=== PATIENT | female | born 1955 | race Caucasian/White ===

== ENCOUNTER 2019-06-04 08:04 | Observation (INO) | payer BC ==
[~2019-06-04] VITALS: Ht 162.6 cm; Wt 110.7 kg
--- NOTE | ~2019-06-04 | D ---
[facility] [place] [address] DISCHARGE SUMMARY Name: SNOW OLIVARES Room #: 206-P ADM [facility] M.R.#: [id number] Admission: 06/04/19 Attend Phys: Domo Roblero Discharge: Date of : 53 Report #: [id number] THIS REPORT FOR: cc: Keila Melissa MD,Keila Roblero,Domo Hummel MD ~ THIS REPORT FOR: //name// CC: Domo Melissa DATE OF SERVICE: 06/05/2019 ADMITTING DIAGNOSIS: Chest pain with abnormal perfusion scan. DISCHARGE DIAGNOSES: 1. Coronary artery disease. 2. Diabetes mellitus. 3. Dyslipidemia. DISCHARGE MEDICATIONS: 1. Ticagrelor 90 mg p.o. b.i.d., aspirin 81 mg daily. 2. Home medications. FOLLOWUP: Dr. Roblero in 4 weeks. DISCHARGE DIET: [place] [employer] Association step 1 diet and the [place] Diabetic Association recommendations consistent with the [place] diet. DISCHARGE ACTIVITY: No heavy straining for 48 hours. PROCEDURES PERFORMED: 1. Left heart catheterization. 2. Percutaneous transluminal coronary angioplasty and stenting of the left anterior descending distal third with a Medtronic 2.25 x 12 mm YAJAIRA stent taken to 20 atmospheres. 3. Supervision and conscious sedation. BRIEF CLINICAL HISTORY: See history and physical in the chart. HOSPITAL COURSE: The patient was admitted to the hospital and underwent cardiac catheterization, demonstrated significant single vessel disease with moderate 2-vessel disease involving the circumflex and the right coronary artery. The LAD was subsequently stented after family agreed to proceed percutaneously and deployed the stent. Post-procedure, the patient had a short run of atrial fibrillation, which she never had previously. She stated that was associated [facility] [address] [place] [address] DISCHARGE SUMMARY Name: SNOW OLIVARES Room #: 206-P [facility] Fabiola Moise#: [id number] Admission: 06/04/19 Attend Phys: Domo Roblero Discharge: Date of : 53 Report #: [id number] with shortness of breath. She also stated she felt the palpitations and once the palpitations resolved, she felt back to normal. She had never had these sensations documented, although she had the symptoms previously never able to be identified. She was allowed to ambulate without any recurrent symptomatology without limitations and tolerating the medications well. She is being discharged in stable and improved condition to follow up with the previously stated discharge instructions and medications. By: 1336 1422 Domo Roblero MD /nt
[2019-06-04] MEDS ORDERED: FOSAMAX 70 MG T70 MG PO (08:39)
[2019-06-04] MEDS ORDERED: ALLOPURINOL 10100 M1 PO (08:40)
[2019-06-04] MEDS ORDERED: AMLOD-VALSA-HC1 EAC1 PO (08:41)
[2019-06-04] MEDS ORDERED: ASA81BEC PO (08:41)
[2019-06-04] MEDS ORDERED: CO-ENZYME Q-1010 MG PO (08:43)
[2019-06-04] MEDS ORDERED: NEURONTIN 300M300 M2 PO (08:43)
[2019-06-04] MEDS ORDERED: VITAMIN D350 MCG PO (08:43)
[2019-06-04] MEDS ORDERED: TRESIBA100 UNIT/1 SUBQ (08:44)
[2019-06-04] MEDS ORDERED: HUMALOG100 UNIT/1 SUBQ (08:44)
[2019-06-04] MEDS ORDERED: TOPROL XL100 MG PO (08:45)
[2019-06-04] MEDS ORDERED: NITROSTAT0.4 M1 SUBLING (08:45)
[2019-06-04] MEDS ORDERED: IMDUR 30 MG TAB30 M1 PO (08:45)
[2019-06-04] MEDS ORDERED: CRESTOR20 MG PO (08:46)
[2019-06-04 09:25] VITALS: BP 138/70
[2019-06-04 09:26] LABS: HEMATOCRIT 43.3 % (37.0-47.0); MCH 31.7 pg (26.0-34.0); MCHC 34.7 g/dL (28.0-37.0); MCV 91.4 fL (80.0-100.0); RBC 4.74 mil/uL (4.20-5.00); RDW 13.2 % (10.5-14.5); WBC 8.6 thou/uL (4.0-11.0)
[2019-06-04 09:37] LABS: CALCIUM 9.3 mg/dL (8.5-10.1); POTASSIUM 3.9 mmol/L (3.5-5.1)
[2019-06-04] MEDS ORDERED: JARDIANCE10 MG PO (10:03)
[2019-06-04 15:30] VITALS: BP 138/70
[2019-06-04 16:25] VITALS: BP 145/74
--- NOTE | 2019-06-04 18:39 | NUR ---
PT CARE ASSUMED AT 1530. PT ASSESSMENT CHARTED. CARDIAC CATH PT; RT GROIN STENT; DISTAL LAD X 1; MYNX CLOSURE. BED REST COMPLETE. PT UP TO TOILET. PT DENIES PAIN.
[2019-06-04 20:44] VITALS: BP 143/79
[2019-06-04 23:39] VITALS: BP 153/87
[2019-06-05 04:14] VITALS: BP 141/72
--- NOTE | 2019-06-05 06:10 | NUR ---
PATIENTS CARE WAS ASSUMED AT SHIFT CHANGE. PATIENT WAS ASSESSED AND MEDS WERE PASSED. PATIENT IS HERE ON 23 HOURS OPS. AFTER A CARDIAC CATH. MED REC WAS ADDRESSED. WAS TOLD BY NONI SHE WAS A DIABETIC. WENT OVER MEDS WITH PATIENTS DAUGHTER DUE TO PATIENTS NEPALESE IS NOT GOOD. ALLERGIES WERE ALSO REVIEWED. DOCTOR WAS CALLED TO OBTAIN AN ORDERS TO ORDER AND GIVE MEDICATIONS. SHE IS NOW ACCU CHECKS AC AND HS. INSULIN IS ORDERED IN A LOW SLIDING SCALE. IVF RAN AT 50CC PER HOUR [id number], PER DRS. ORDER THEN STOPPED. PATIENTS NIGHT WAS UNEVENTFULL. SEVERAL TRIPS TO THE BATHROOM. PATIENT DID SLEEP APPROX. SEVEN HOURS. PATIENT MOST LIKELY WILL BE DISCHARGED TODAY. HOURLY ROUNDS WERE MADE. THE BED IS IN A LOW AND LOCKED POSITION.
[2019-06-05] MEDS ORDERED: BRILINTA90 MG PO (07:46)
[2019-06-05 07:55] VITALS: BP 149/88
--- NOTE | 2019-06-05 07:57 | EKG ---
[facility] [place] [address] ELECTROCARDIOGRAM REPORT Name: SNOW OLIVARES Room #: 206-P [facility] M.R.#: [id number] Admission: 06/04/19 Attend Phys: Domo Roblero Discharge: Date of : 53 Report #: [id number] THIS REPORT FOR: cc: Keila Melissa MD, Julie MD Lundgren,Michael [place] MD [facility] ~ THIS REPORT FOR: //name// [facility] Test Date: 2019-06-04 Test Time: 09:20:48 Pat Name: SNOW OLIVARES Department: Room: [facility] Gender: F 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: MACKENZIE : 1955 Requested By: Domo Roblero Order Number: [id number] MD: Michael Santiago Measurements Intervals [place] Rate: 74 P: -17 [place]: 192 QRS: 15 QRSD: 101 T: 102 QT: 394 QTc: 438 Interpretive Statements Sinus rhythm Nonspecific T abnormalities, lateral leads No previous ECG available for comparison Electronically Signed On 06-05-2019 7:55:35 CDT by Michael Santiago [email or web address] <ELECTRONICALLY SIGNED> By: Michael Santiago MD, [facility] 06/05/19 0755 9 9 Michael Santiago MD, [facility] /EPI
[2019-06-05 08:00] VITALS: BP 149/88
[2019-06-05 12:00] VITALS: BP 146/71
[2019-06-05 12:05] VITALS: BP 146/71
--- NOTE | 2019-06-05 13:09 | CATHLAB ---
[facility] [place] [address] INVASIVE PROCEDURE REPORT Name: SNOW OLIVARES Room #: 206-P ADM Fabiola M.RRuperto#: [id number] Admission: 06/04/19 Attend Phys: Domo Roblero Discharge: Date of : 53 Report #: [id number] THIS REPORT FOR: cc: Keila Melissa MD, Julie MD Lammoglia, Francisco J. MD ~ APPROVED REPORT Study performed: 06/04/2019 13:44:40 Patient Details Patient Status: Out-Patient Room #: The patient is a 63 year-old female Event Personnel Domo Roblero Fire Engine Operator, Ashley Barnes RN RN, Daniela Baltazar Monitor, Syeda Lucas RTR ScrubAp Sherra RTAura Monitor Procedures Performed Art Access - R femoral artery* 48571 Initial Mod Sed Same Phys/QHP Gr5y 471503 39074 Mod Sed Same Phys/QHP Ea 060262 YAJAIRA Place w/wo Plasty Single LAD 404844 Hemostasis w/ Mynx, supervision of conscious sedation Indication Chest pain Procedure Narrative The Right Groin^ was infiltrated with 1% Lidocaine subcutaneous anesthesia. A PINNACLE 6FR Sheath #[id number] sheath was inserted into the RFA^. Coronary angiography was performed using coronary diagnostic catheters. The patient tolerated the procedure well and there were no complications associated with the procedure. There was no hematoma. Intraoperative Conscious Sedation Sedation start time: 1424 Case end Time: 1519 Versed 2 mg Fluoro Time: 11.09 minutes Dose: DAP 93493.00 cGycm2 1598 mGy Contrast Type and Amount: Omnipaque 150 ml [facility] [address] [place] [address] INVASIVE PROCEDURE REPORT Name: SNOW OLIVARES Room #: 206-P [facility] [place] ..#: [id number] Admission: 06/04/19 Attend Phys: Domo Han Discharge: Date of : 53 Report #: [id number] Diagnostic Cath LAD I's moderate caliber type II vessel which courses in the anterior interventricular sulcus. There is moderate less than 50% lesion proximally which is not flow-limiting. There is no irregularities noted throughout the mid and distal LAD until the distal third of the distal portion of the LAD which has a subtotal 90% lesion. There is thrombus present with IAN 1 flow noted. Post-stent deployment the vessel is widely patent as described in the report below Hemodynamics The aortic pressure is 140/77 mmHg with a mean of 104 mmHg. PCI Technique After discussion with family members it was felt prudent injury vascular physician was their wishes and the patient was brought back to the cardiac catheterization laboratory. Informed consent was obtained. She was sedated with 2 mg of Versed. The right groin was prepped and draped in usual sterile manner utilizing a modified Seldinger technique the right femoral artery was then cannulated. A 6 Iraqi sheath was inserted. Under fluoroscopic realization a Allotrope Partnerstronic JL4 catheter was engaged the left coronary ostium. A 0.014 wire was advanced to the distal LAD. 8 2 mm x 12 mm PTCA balloon was then advanced across the lesion and slowly inflated. Subsequent to this the balloon was exchanged for a 2.25 mm x 12 mm deep chest Medtronic stent that was positioned across the lesion and deployed. Several post deployment inflations were obtained with a maximum of 20 reva. The vessel is widely patent is no loss of side branch distal embolization or intraluminal thrombus noted. The initial thrombus that was present in the vessel was no longer present. Nicardipine 200 g were given into coronary prior to final imaging. Patient tolerated procedure well and no complications. This site was sealed with a minx closure device PCI Technique Lesion Anticoagulation was achieved with Angiomax. Percutaneous coronary intervention was performed on the distal left anterior descending artery segment. The lesion stenosis prior to intervention was 99% with IAN 1 flow. A LAUNCHER 6FR JL4 #[id number] Guide Catheter was used to engage the ostium. A Luge Wire .014 x 182CM #[id number] Interventional Guidewire was used to cross the lesion. BALLOON DILATION A Balloon catheter Sprinter OTW 2.0 x 12 #[id number] was inserted and inflated up to 4.00atm for 17seconds. Additional Inflation: 8.00atm [address] [address] INVASIVE PROCEDURE REPORT Name: SNOW OLIVARES Room #: 206-P [facility] [place] M.R.#: [id number] Admission: 06/04/19 Attend Phys: Domo Han Discharge: Date of : 53 Report #: [id number] for 31seconds. Additional Inflation: 6.00atm for 28seconds. STENT DEPLOYMENT A drug-eluting stent RESOLUTE MOI OTW 2.25 X 12 #[id number] was inserted and inflated up to 18.00atm for 15seconds. Additional Inflation: 20.00atm for 10seconds. Additional Inflation: 18.00atm for 15seconds. Final angiography reveals 0 % stenosis with AIN 3 flow. Conclusion 1. Coronary disease severe, single vessel involving the distal third of the left anterior descending artery 2. Successful percutaneous revascularization with stenting of the distal left anterior descending artery Recommendations Cardiac Risk Reduction Program Medical Therapy Medications Administered Ticagrelor <ELECTRONICALLY SIGNED> By: Domo Roblero MD 06/05/19 1308 1308 Domo Roblero MD /INF
--- NOTE | 2019-06-05 13:25 | CATHLAB ---
[facility] [place] [address] INVASIVE PROCEDURE REPORT Name: SNOW OLIVARES Room #: 206-P [facility] Fabiola M.R.#: [id number] Admission: 06/04/19 Attend Phys: Domo Roblero Discharge: Date of : 53 Report #: [id number] THIS REPORT FOR: cc: Keila Melissa MD, Julie MD Lammoglia, Francisco J. MD ~ APPROVED REPORT Study performed: 06/04/2019 10:28:05 Patient Details Patient Status: Out-Patient Room #: The patient is a 63 year-old female Event Personnel Domo Roblero System Consultant, Ashley Barnes RN RN, Daniela Baltazar, Syeda Lucas RTR Scrub Procedures Performed Art Access - R femoral artery* 41375 Initial Mod Sed Same Phys/QHP Gr5y 920241 Left Heart Cath w/or w/o Coronaries [id number] [facility] Hemostasis with Manual pressure, supervision of conscious sedation Indication Positive stress test, Chest pain Procedure Narrative The patient was brought electively to the Cardiac Catheterization Laboratory and was prepped and draped in a sterile manner. The Right Groin^ was infiltrated with 1% Lidocaine subcutaneous anesthesia. A PINNACLE 4FR Sheath #[id number] sheath was inserted into the RFA^. Coronary angiography was performed using coronary diagnostic catheters. The right coronary system was accessed and visualized with a JR 4 catheter. The left coronary system was accessed and visualized with a JL 4 catheter. The left ventricle was accessed and visualized with a Pigtail catheter. Left ventricular/Aortic Valve gradient assessed . Hemostasis was obtained with manual pressure following sheath removal without any complications. The patient tolerated the procedure well and there were no complications associated with the procedure. There was no hematoma. Intraoperative Conscious Sedation Sedation start time: 11:00 Case end Time: [facility] [address] [address] INVASIVE PROCEDURE REPORT Name: SNOW OLIVARES Room #: [facility] [place] ..#: [id number] Admission: 06/04/19 Attend Phys: Domo Han Discharge: Date of : 53 Report #: [id number] 11:20 Versed 2 mg Fluoro Time: 2.06 minutes Dose: DAP 4261.00 cGycm2 628 mGy Contrast Type and Amount: Omnipaque 55 ml Coronary Angiography The patient's coronary anatomy is right dominant. Diagnostic Cath Left Main Large-caliber vessel normal origin trifurcates left anterior descending, ramus intermedius, and left circumflex. There is mild irregularities of less than 30% noted throughout its course but no flow-limiting lesions identified LAD Large-caliber type III vessel which is heavily calcified on fluoroscopic visualization. There is irregularities of approximately 30% throughout the proximal and mid course of the vessel. The first septal instructor tap dancing has a 50% ostial lesion. The first diagonal branch is a small-caliber vessel which has a 70% ostial lesion. The vessel itself is less than 1.5 mm in diameter. The LAD then continues in a tortuous course towards the apex with mild to moderate irregularities present were in the distal third there is a subtotal lesion of 99% with associated thrombus noted. IAN 1 flow beyond it is noted as it terminates post-rest left ventricle Diagonal 1 Small-caliber vessel with a 70% ostial lesion. Diffuse irregularities are noted which are mild throughout its course be on this initial lesion Circumflex Large-caliber vessel normal origin courses in the AV groove posteriorly where it gives her some moderate to large caliber marginal. The circumflex proper tapers less than 25% prior to the origin of this branch. The circumflex proper continues on posteriorly rapidly tapering with diffuse disease noted to proximally 60% where it terminally bifurcates into the 2 small posterior wall branches the larger one appears to be a third marginal branch which has a any percent proximal lesion with some haziness and IAN 2 flow. OM1 Moderate to large caliber vessel with tortuous course along the lateral aspect of the left ventricle. 40% concentric lesion noted in the proximal fourth at then reconstitutes without high-grade lesions OM2 Diminutive size vessel less than half a millimeter in diameter which is subtotally occluded proximally and has IAN 1 flow OM3 Her caliber vessel with a 60% eccentric lesion in its origin with some haziness noted and IAN 2 flow. Right Coronary Large-caliber ectatic vessel of normal origin with 30% [facility] [address] [place] [address] INVASIVE PROCEDURE REPORT Name: SNOW OLIVARES Room #: 206-P ADM [place] M.R.#: [id number] Admission: 06/04/19 Attend Phys: Domo Han Discharge: Date of : 53 Report #: [id number] irregularities throughout its entire course. In the proximal portion is an eccentric lesion of no more than 50% which is not flow-limiting. The vessel continues on even rest a small RV marginal branch. The crux of the heart there is a moderate caliber PDA which is free of high-grade disease with only luminal irregularities in immediately after the origin of this is a posterolateral branch which is moderate in size with irregularities also R PDA Moderate caliber vessel without significant high-grade lesions Left Ventriculography Left Ventriculography was not performed. Hemodynamics The aortic pressure is 107/68 mmHg with a mean of 82 mmHg. The left ventricular pressure is 136/10 mmHg with a mean of mmHg. The left ventricular end diastolic pressure is 26 mmHg. Conclusion 1. Coronary disease consisting of severe distal LAD stenosis and moderate left circumflex and right coronary artery plaquing 2. Abnormal hemodynamics elevated left ventricular end-diastolic pressures Recommendations Locomotive Operator Helper with prior discussions the patient that would like to have a discussion of revascularization options with family members. I will get them to prep and hold and await the discussion with him amongst the family members as to their wishes and how to proceed according to their tolerances risk. <ELECTRONICALLY SIGNED> By: Domo Roblero MD 06/05/19 1323 22 22 Domo Roblero MD /INF
[2019-06-05 14:06] VITALS: BP 146/71
--- NOTE | 2019-06-05 15:31 | NUR ---
PT CARE ASSUMED AT SHIFT CHANGE. PT ASSESSMENT CHARTED. PT MEDICATION CHARTED. PT TO BE DISCHARGED. TELE D/C'D. IV D/C'D. VSS. DISCHARGE PAPERWORK AND DRUG INFO SHEETS SIGNED.
== END 2019-06-05 15:57 | disposition home or self-care (01) ==
LOC: CATH 08:04 → 2N 17:22 → CATH 17:23 → 2N 17:23
PROVIDERS: ADMIT Internal Medicine
DX: I25.10 Atherosclerotic heart disease of native coronary artery without angina pectoris (principal); E11.9 Type 2 diabetes mellitus without complications; E78.5 Hyperlipidemia, unspecified
CPT/HCPCS: 10081

== ENCOUNTER 2019-07-11 15:49 | Emergency (ER) | payer BC, OTHER ==
[~2019-07-11] VITALS: Ht 165.1 cm; Wt 108.9 kg
--- NOTE | ~2019-07-11 | EKG ---
[facility] [address] [place] [address] ELECTROCARDIOGRAM REPORT Name: SNOW OLIVARES Room #: [facility]..#: [id number] Admission: Attend Phys: Discharge: Date of : 53 Report #: [id number] THIS REPORT FOR: cc: Madalyn Bergman MD ~ THIS REPORT FOR: //name// [facility] ED Test Date: 2019-07-11 Test Time: 15:53:09 Pat Name: SNOW OLIVARES Department: Room: Gender: F Candle Maker: MIREYA : 1955 Requested By: Robert Hernandez Order Number: [id number] MD: Measurements Intervals [place] Rate: 77 P: 11 MT: 205 QRS: 33 QRSD: 93 T: 84 QT: 380 QTc: 431 Interpretive Statements Sinus rhythm Compared to ECG 06/04/2019 09:20:48 T-wave abnormality no longer present [email or web address] By: 52 52 Madalyn Bergman MD /EPI
[~2019-07-11 15:49] MED LIST: ALLOPURINOL 10100 M1 PO; AMLOD-VALSA-HC1 EAC1 PO; ASA81BEC PO; BRILINTA90 MG PO; CO-ENZYME Q-1010 MG PO; CRESTOR20 MG PO; FOSAMAX 70 MG T70 MG PO; HUMALOG100 UNIT/1 SUBQ; IMDUR 30 MG TAB30 M1 PO; JARDIANCE10 MG PO; NEURONTIN 300M300 M2 PO; NITROSTAT0.4 M1 SUBLING; TOPROL XL100 MG PO; TRESIBA100 UNIT/1 SUBQ; VITAMIN D350 MCG PO
[2019-07-11 16:37] LABS: ABSOLUTE NEUTROPHILS 5.8 thou/uL (1.4-8.2); BASOPHILS 0.5 % (0.0-2.0); EOSINOPHILS 2.8 % (0.0-3.0); HEMATOCRIT 44.8 % (37.0-47.0); HEMOGLOBIN 15.7 gm/dL (12.0-15.0); LYMPHOCYTES 26.9 % (24.0-44.0); MCH 31.7 pg (26.0-34.0); MCV 90.6 fL (80.0-100.0); MONOCYTES 8.1 % (1.0-8.0); PLATELET COUNT 292 thou/uL (150-400); POLYS 61.7 % (36.0-66.0); RBC 4.94 mil/uL (4.20-5.00); WBC 9.5 thou/uL (4.0-11.0)
[2019-07-11 16:54] LABS: ANION GAP 5 mmol/L (7-16); BUN 29 mg/dL (7-18); CALCIUM 9.5 mg/dL (8.5-10.1); CHLORIDE 99 mmol/L (98-107); CO2 30 mmol/L (21-32); CREATININE 0.8 mg/dL (0.6-1.0); GLUCOSE 118 mg/dL (74-106); POTASSIUM 3.8 mmol/L (3.5-5.1); SODIUM 134 mmol/L (136-145)
[2019-07-11 17:02] LABS: TROPONIN-I <0.06 ng/mL (<0.06)
[2019-07-11 17:34] VITALS: BP 157/69
== END 2019-07-11 17:34 | disposition home or self-care (01) ==
LOC: ER 15:49
PROVIDERS: Emergency Medicine
DX: R07.9 Chest pain, unspecified (principal); I10 Essential (primary) hypertension; E78.5 Hyperlipidemia, unspecified; E66.9 Obesity, unspecified; E11.42 Type 2 diabetes mellitus with diabetic polyneuropathy; Z79.899 Other long term (current) drug therapy; Z79.4 Long term (current) use of insulin